=== PATIENT | male | born 1960 | race Caucasian/White ===

== ENCOUNTER 2017-03-27 13:17 | Outpatient (RCR) | payer OTHER, SELFPAY ==
[2017-03-27 14:43] LABS: Absolute Lymphocyte Count 1.16 X10^3/ul (0.83-4.51); Basophil# 0.01 X10^3/uL; Basophil% 0.2 % (0-1); Eosinophil# 0.12 X10^3/uL; Eosinophils% 2.8 % (0-5); Hematocrit 34.9 % (40-54); Hemoglobin 11.8 g/dl (13.0-16.5); Lymphocyte # 1.16 X10^3/ul (4.0); Lymphocyte % 27.4 % (19-41); Mean Corp Hgb Conc 33.8 g/gl (32-36); Mean Corpuscular Hgb 33.3 pg (27.0-32.0); Mean Corpuscular Volume 98.6 fL (80-94); Mean Platelet Vol. 9.4 fl (6.2-12.0); Monocyte# 0.89 X10^3/uL; Neutrophil # 2.04 X10^3/uL (2.7-7.7); Neutrophil % 48.4 % (47-70); Platelet Count 133 K/mm3 (150-450); RBC Distribution Width CV 14.1 % (11.6-14.6); RBC Distribution Width SD 50.8 fl (35.1-43.9); Red Blood Count 3.54 M/mm3 (4.6-6.2); White Blood Count 4.2 K/mm3 (4.4-11.0)
[2017-03-27 14:48] LABS: POSITIVE COUNT NO; POSITIVE DIFFERENTIAL NO; POSITIVE MORPHOLOGY NO
[2017-03-27 14:54] LABS: International Normalized Ratio 1.3
[2017-03-27 15:07] LABS: ALB/GLOB Ratio 0.8 RATIO (0.9-2.4); AST(SGOT) 30 U/L (15-37); Alanine Aminotransfer ALT/SGPT 23 U/L (12-78); Alkaline Phosphatase 178 U/L (45-117); Anion Gap 8 (5-15); BUN 9 mg/dL (7-18); BUN/Creat Ratio 10.4 RATIO (10-20); Calcium,Total 8.3 mg/dL (8.5-10.1); Chloride 107 mmol/L (98-107); Creatinine, Serum 0.86 mg/dL (0.70-1.30); EST Glomerular Filtration Rate 97 mL/min (>60); Est Glom Filt Rate - Afr Amer 117 mL/min (>60); Globulin 3.9 g/dL (2.2-4.2); Glucose 72 mg/dL (70-110); Protein, Total 6.9 g/dL (6.4-8.2); Sodium Level 140 mmol/L (136-145)
== END 2017-03-27 13:30 | disposition home or self-care (01) ==
LOC: LAB 13:17
PROVIDERS: Family Provider Internal Medicine; PCP Internal Medicine; Visit Provider Internal Medicine
DX: K70.31 Alcoholic cirrhosis of liver with ascites (principal)
CPT/HCPCS: 36415; 80053; 85025; 85610

== ENCOUNTER 2017-04-28 14:15 | Outpatient (RCR) | payer OTHER, SELFPAY ==
[2017-04-28 15:06] LABS: Absolute Lymphocyte Count 0.87 X10^3/ul (0.83-4.51); Absolute Neutrophil Count 1.8 X10^3/uL (2.0-7.7); Basophil# 0.01 X10^3/uL; Basophil% 0.3 % (0-1); Eosinophil# 0.13 X10^3/uL; Eosinophils% 3.8 % (0-5); Hematocrit 35.4 % (40-54); Lymphocyte # 0.87 X10^3/ul (4.0); Lymphocyte % 25.7 % (19-41); Mean Corp Hgb Conc 33.9 g/gl (32-36); Mean Corpuscular Volume 97.3 fL (80-94); Mean Platelet Vol. 9.4 fl (6.2-12.0); Monocyte# 0.59 X10^3/uL; Monocyte% 17.4 % (0-10); Neutrophil # 1.79 X10^3/uL (2.7-7.7); Neutrophil % 52.8 % (47-70); Platelet Count 128 K/mm3 (150-450); RBC Distribution Width CV 13.8 % (11.6-14.6); RBC Distribution Width SD 48.9 fl (35.1-43.9); Red Blood Count 3.64 M/mm3 (4.6-6.2); White Blood Count 3.4 K/mm3 (4.4-11.0)
[2017-04-28 15:10] LABS: POSITIVE COUNT NO; POSITIVE DIFFERENTIAL NO; POSITIVE MORPHOLOGY NO
[2017-04-28 15:14] LABS: International Normalized Ratio 1.3; Prothrombin Time (Protime)PT. 16.1 SECONDS (11.7-14.9)
[2017-04-28 15:30] LABS: ALB/GLOB Ratio 0.7 RATIO (0.9-2.4); AST(SGOT) 28 U/L (15-37); Alanine Aminotransfer ALT/SGPT 23 U/L (16-61); Albumin, Serum 2.9 g/dL (3.2-5.0); Alkaline Phosphatase 178 U/L (45-117); Anion Gap 6 (5-15); BUN 10 mg/dL (7-18); BUN/Creat Ratio 12.5 RATIO (10-20); Calcium,Total 8.2 mg/dL (8.5-10.1); Chloride 108 mmol/L (98-107); EST Glomerular Filtration Rate 106 mL/min (>60); Est Glom Filt Rate - Afr Amer 128 mL/min (>60); Glucose 83 mg/dL (74-106); Potassium 4.2 mmol/L (3.5-5.1); Protein, Total 6.9 g/dL (6.4-8.2); Sodium Level 141 mmol/L (136-145)
== END 2017-04-28 14:16 ==
LOC: LAB 14:15
PROVIDERS: Family Provider Internal Medicine; PCP Internal Medicine; Visit Provider Internal Medicine
DX: K70.31 Alcoholic cirrhosis of liver with ascites (principal)
CPT/HCPCS: 36415; 80053; 85025; 85610

== ENCOUNTER → 2017-04-28 14:34 | Outpatient (CLI) | payer OTHER, SELFPAY ==
--- NOTE | 2017-04-28 14:36 | US_ITS ---
PROCEDURE: Ultrasound guided paracentesis. DATE OF EXAMINATION: April 28, 2017. INDICATION: Male, 57 years old. Ascites. PHYSICIAN: Ashkan Blair M.D. TECHNIQUE: The risks, benefits, and alternatives to the procedure were explained to the patient. The specific risks of bleeding, infection, and damage to bowel were detailed and accepted. Witnessed informed consent was obtained. The abdomen was ultrasonographically surveyed. An appropriate pocket of fluid was identified at the right lower quadrant. The skin were cleaned and prepped in the usual sterile fashion. Using ultrasound guidance, the peritoneal cavity was accessed with a 5-Sami paracentesis needle/catheter system. The trocar was removed. A total of 2650 ml of harper-colored fluid were removed from the peritoneal cavity. The catheter was removed and a sterile dressing was applied. The procedure was well tolerated. US/Paracentesis with US IMPRESSION: Ultrasound guided paracentesis. Electronically Signed: Ashkan Blair MD at 15:34 EST Tel [phone], Service support ,
== END ==
PROVIDERS: Family Provider Internal Medicine; PCP Internal Medicine; Visit Provider Internal Medicine
DX: K70.31 Alcoholic cirrhosis of liver with ascites (principal)
CPT/HCPCS: 49083

== ENCOUNTER → 2017-05-08 12:15 | Outpatient (CLI) | payer OTHER, SELFPAY ==
--- NOTE | 2017-05-08 12:17 | US_ITS ---
PROCEDURE: Ultrasound guided paracentesis. DATE OF EXAMINATION: May 08, 2017. INDICATION: Male, 57 years old. Ascites. PHYSICIAN: Ashkan Blair M.D. TECHNIQUE: The risks, benefits, and alternatives to the procedure were explained to the patient. The specific risks of bleeding, infection, and damage to bowel were detailed and accepted. Witnessed informed consent was obtained. The abdomen was ultrasonographically surveyed. An appropriate pocket of fluid was identified at the right lower quadrant. The skin were cleaned and prepped in the usual sterile fashion. Using ultrasound guidance, the peritoneal cavity was accessed with a 5-Gambian paracentesis needle/catheter system. The trocar was removed. A total of 3000 ml of harper-colored fluid were removed from the peritoneal cavity. The catheter was removed and a sterile dressing was applied. The procedure was well tolerated. US/Paracentesis with US IMPRESSION: Ultrasound guided paracentesis. Electronically Signed: Ashkan Blair MD at 13:20 EST Tel [phone], Service support ,
== END ==
PROVIDERS: Family Provider Internal Medicine; PCP Internal Medicine; Visit Provider Internal Medicine
DX: K70.31 Alcoholic cirrhosis of liver with ascites (principal)
CPT/HCPCS: 49083

== ENCOUNTER → 2017-05-21 13:29 | Outpatient (CLI) | payer OTHER, SELFPAY ==
--- NOTE | 2017-05-21 13:31 | US_ITS ---
PROCEDURE: Ultrasound guided paracentesis. DATE OF EXAMINATION: May 21, 2017. INDICATION: Male, 57 years old. Ascites. PHYSICIAN: Ashkan Blair M.D. TECHNIQUE: The risks, benefits, and alternatives to the procedure were explained to the patient. The specific risks of bleeding, infection, and damage to bowel were detailed and accepted. Witnessed informed consent was obtained. The abdomen was ultrasonographically surveyed. An appropriate pocket of fluid was identified at the right lower quadrant. The skin were cleaned and prepped in the usual sterile fashion. Using ultrasound guidance, the peritoneal cavity was accessed with a 5-Danish paracentesis needle/catheter system. The trocar was removed. A total of 2800 ml of harper-colored fluid were removed from the peritoneal cavity. The catheter was removed and a sterile dressing was applied. The procedure was well tolerated. US/Paracentesis with US IMPRESSION: Ultrasound guided paracentesis. Electronically Signed: Ashkan Blair MD at 14:56 EST Tel [phone], Service support ,
== END ==
PROVIDERS: Family Provider Internal Medicine; PCP Internal Medicine; Visit Provider Internal Medicine
DX: K70.31 Alcoholic cirrhosis of liver with ascites (principal)
CPT/HCPCS: 49083

== ENCOUNTER 2017-06-09 13:41 | Outpatient (RCR) | payer OTHER, SELFPAY ==
[2017-06-09 14:32] LABS: Absolute Lymphocyte Count 0.98 X10^3/ul (0.83-4.51); Absolute Neutrophil Count 2.7 X10^3/uL (2.0-7.7); Basophil# 0.01 X10^3/uL; Basophil% 0.2 % (0-1); Eosinophil# 0.08 X10^3/uL; Eosinophils% 1.9 % (0-5); Hematocrit 34.6 % (40-54); Hemoglobin 11.7 g/dl (13.0-16.5); Lymphocyte # 0.98 X10^3/ul (4.0); Lymphocyte % 22.7 % (19-41); Mean Corp Hgb Conc 33.8 g/gl (32-36); Mean Corpuscular Volume 97.5 fL (80-94); Mean Platelet Vol. 9.4 fl (6.2-12.0); Monocyte# 0.53 X10^3/uL; Monocyte% 12.3 % (0-10); Neutrophil # 2.71 X10^3/uL (2.7-7.7); Neutrophil % 62.9 % (47-70); Platelet Count 123 K/mm3 (150-450); RBC Distribution Width SD 50.4 fl (35.1-43.9); Red Blood Count 3.55 M/mm3 (4.6-6.2); White Blood Count 4.3 K/mm3 (4.4-11.0)
[2017-06-09 14:33] LABS: POSITIVE COUNT NO; POSITIVE DIFFERENTIAL NO; POSITIVE MORPHOLOGY NO
[2017-06-09 14:41] LABS: International Normalized Ratio 1.3; Prothrombin Time (Protime)PT. 16.5 SECONDS (11.7-14.9)
[2017-06-09 14:50] LABS: ALB/GLOB Ratio 0.7 RATIO (0.9-2.4); AST(SGOT) 26 U/L (15-37); Alanine Aminotransfer ALT/SGPT 21 U/L (16-61); Albumin, Serum 2.9 g/dL (3.2-5.0); Alkaline Phosphatase 193 U/L (45-117); Anion Gap 4 (5-15); BUN 10 mg/dL (7-18); BUN/Creat Ratio 11.2 RATIO (10-20); Calcium,Total 8.2 mg/dL (8.5-10.1); Chloride 111 mmol/L (98-107); EST Glomerular Filtration Rate 93 mL/min (>60); Est Glom Filt Rate - Afr Amer 112 mL/min (>60); Glucose 82 mg/dL (74-106); Protein, Total 6.9 g/dL (6.4-8.2); Sodium Level 143 mmol/L (136-145)
== END 2017-06-09 14:00 | disposition home or self-care (01) ==
LOC: LAB 13:41
PROVIDERS: Family Provider Internal Medicine; PCP Internal Medicine; Visit Provider Internal Medicine
DX: K70.31 Alcoholic cirrhosis of liver with ascites (principal)
CPT/HCPCS: 36415; 80053; 85025; 85610

== ENCOUNTER → 2017-06-09 13:58 | Outpatient (CLI) | payer OTHER, SELFPAY ==
--- NOTE | 2017-06-09 13:59 | US_ITS ---
PROCEDURE: Ultrasound guided paracentesis. DATE OF EXAMINATION: June 09, 2017.. INDICATION: Male, 57 years old. Ascites. PHYSICIAN: Ashkan Blair M.D. TECHNIQUE: The risks, benefits, and alternatives to the procedure were explained to the patient. The specific risks of bleeding, infection, and damage to bowel were detailed and accepted. Witnessed informed consent was obtained. The abdomen was ultrasonographically surveyed. An appropriate pocket of fluid was identified at the right lower quadrant. The skin were cleaned and prepped in the usual sterile fashion. Using ultrasound guidance, the peritoneal cavity was accessed with a 5-Luxembourger paracentesis needle/catheter system. The trocar was removed. A total of 2800 ml of harper-colored fluid were removed from the peritoneal cavity. The catheter was removed and a sterile dressing was applied. The procedure was well tolerated. US/Paracentesis with US IMPRESSION: Ultrasound guided paracentesis. Electronically Signed: Ashkan Blair MD at 15:34 EDT Tel [phone], Service support ,
== END ==
PROVIDERS: Family Provider Internal Medicine; PCP Internal Medicine; Visit Provider Internal Medicine Gastroenterology
DX: K70.31 Alcoholic cirrhosis of liver with ascites (principal)
CPT/HCPCS: 49083

== ENCOUNTER 2017-12-18 05:24 | Day surgery (SDC) | payer OTHER, SELFPAY ==
[2017-12-11 15:45] LABS: International Normalized Ratio 1.3
[2017-12-11 15:46] LABS: Partial Thromboplast Time 33.1 Seconds (24.1-36.2)
[2017-12-11 16:01] LABS: Magnesium 2.1 mg/dL (1.6-2.6); Phosphorus 3.6 mg/dL (2.5-4.9)
[2017-12-18] VITALS (8 sets, daily range): BP systolic 119–154; BP diastolic 63–91; PULSE 55–83; RESP 16; TEMP 36.4–36.9; O2SAT 94–98; BMI 35.9
[2017-12-18] MEDS: Bupivacaine Mpf 0.5% 30 ML VIAL (06:53)
[2017-12-18] MEDS: Cefazolin 2 GM in 0.9% Normal Saline 100 ML IV (09:56)
--- NOTE | 2017-12-18 10:11 | DCINST_ITS ---
Discharge Diet: Light diet - advance as tolerated Discharge Activity: Return to Normal Activity, May Drive - when you are no longer taking narcotic pain medications., May Shower - with the bandage in place 1-2 days after surgery. Lifting Restrictions: 20 pounds for 8 weeks. Additional Activity Instructions:: Climbing stairs is fine, walking is encouraged. Sitting in bed may be uncomfortable. Sitting up using your lateral muscles (sitting up sideways) is usually more comfortable. Do not drive, work heavy equipment of sign legal documents for 24 hours. If your hernia repair was an ingunial repair, you may have scrotal swelling, an ice pack and/or athletic support can provide more comfort. Pain medications may cause nausea, you should typically eat light foods as you take your pain medications. Pain medications may also cause constipation. If you have difficulty with this, discuss with your doctor. Call your doctor if your incision/area has: Continuous Slow Oozing, Sudden Increased Bleeding, Increased Pain/ Swelling, Increased Redness, Foul Smelling Discharge Call your doctor if you observe: Fever of 101 or Higher Suture Line Care: Avoid Pulling/Pushing, Avoid Pinching/Bending Additional Dressing/Incision Instructions:: Leave the operative bandage on for 2-3 days. When you remove the bandage, leave the steri-strips on place until your follow up appointment or they fall off. Allergies/Adverse Reactions: Allergies No Known Allergies Allergy (Verified 12/11/17 11:11) Medications to take at Discharge DiphenhydrAMINE [Benadryl] 50 mg PO QHS 12/11/17 tamsulosin 0.4 mg capsule 0.4 mg PO DAILY #14 cap 12/11/17 Oxycodone HCl/Acetaminophen [Percocet 5/325] 1 - 2 tab PO Q4H PRN PRN 5 Days #30 tab 12/18/17 The following prescriptions were given: Oxycodone HCl/Acetaminophen [Percocet 5/325] 1 - 2 tab PO Q4H PRN PRN 5 Days #30 tab PRN Reason: Pain Primary Care Physician: Lorena Alston DO [Primary Care Provider] - Test Results: Test results from this visit will be discussed in further detail at your follow- up appointment, if applicable. Please Follow Up With: Adrian Storm MD - [phone] When: Plan to have a follow up appointment in 7 days. Call to schedule.
--- NOTE | 2017-12-18 10:38 | PCM.OPRPT ---
Problem List (1) Incisional hernia, without obstruction or gangrene Status: Acute Report of Operation Date of Procedure: 12/18/17 Pre-Operative Diagnosis: K43.2 incisional hernia without obstruction or gangrene Post-Operative Diagnosis: Same Surgery/Procedure Performed:: Laparoscopic incisional hernia repair with mesh Type of Anesthesia:: General Anesthesiologist: Reji Clayton Estimated Blood Loss (mL): < 25 CC Fluids Replaced: 1200 CC LR Description of Procedure: Patient was brought in the operating room. Placed in the supine position. Under excellent general endotracheal ablation of the abdomen was sterilely prepped and draped in the usual fashion. Patient had a previous incarcerated umbilical hernia where I removed his umbilicus and surgically repaired this with #1 Nurolon's. This had open back up and he had a recurrence of his hernia now at where his incision was located. I injected local in the midclavicular line on the right side using a Visiport to gain access into the intra-abdominal cavity without difficulty placed a 10/12 trocar in the subxiphoid area in the right lower quadrant I placed another 5 trocar both of these under direct visualization without injury to underlying structures. General inspection of the abdomen did not reveal any injury to underlying bowel or omental or colon. There were no adhesions identified the hernia was identified I placed a ventral light ST mesh with the echo PS positioning system into the abdomen made a small incision over the defect I use a grainy needle gain access to the abdominal cavity and pulled the positioning tubing up and through into the abdomen. I cut it appropriately placed the syringe onto the tubing and inflated this and then brought it up to the abdominal wall. I then did use the secure strap circumferentially tacked it without difficulty I cut the positioning tubing and remove the positioning balloon out of the abdomen completely I then used the secure strap to put in numerous tacking sutures throughout the mesh so that it light completely flat. There were no rolled edges. The trochars were removed under direct visualization good hemostasis was noted. I closed the fascia of the 10/12 trocar the [id number] stitch of 0 Vicryl. Skin incisions were closed with subcuticular stitches of 4-0 Monocryl. Steri-Strips are applied sterile dressings were applied and the patient tolerated the procedure well. - Admit VTE Documentation VTE Present on Admission: No VTE Mechan Device Prophylaxis: SCD's VTE Pharm Prophylaxis ordered?: No Reason prophylaxis not ordered:: Treatment Not Indicated
[2017-12-18] MEDS: oxyCODONE 5 MG Tablet PO (12:49)
== END 2017-12-18 13:59 | disposition home or self-care (01) ==
PROVIDERS: Family Provider Internal Medicine; PCP Internal Medicine; Visit Provider Surgery
PROC: 0WQF4ZZ Repair Abdominal Wall, Percutaneous Endoscopic Approach (ICD-10-PCS; CPT 49655; principal; 2017-12-18 09:15)
DX: K43.2 Incisional hernia without obstruction or gangrene (principal); K70.31 Alcoholic cirrhosis of liver with ascites; F10.20 Alcohol dependence, uncomplicated; Z79.899 Other long term (current) drug therapy; Z87.891 Personal history of nicotine dependence
CPT/HCPCS: 00752; 49655; 36415; 83735; 84100; 85610; 85730; J7120; J2405